=== PATIENT | male | born 1995 | race Caucasian/White ===

== ENCOUNTER 2016-09-20 18:07 | Emergency (ER) | payer OTHER ==
[2016-09-20 19:20] VITALS: BP 133/73
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
--- NOTE | 2016-09-20 20:29 | RAD ---
Indication: Left rib injury. 3 views of left ribs demonstrates no fracture. No other bone or joint abnormality is identified. No pneumothorax is noted. IMPRESSION: No fracture of the RIBS is identified.
[2016-09-20] MEDS ORDERED: HYDROcodone/ACETAMIN 5-325 MG* 1 TAB PO ONE (20:44)
--- NOTE | 2016-09-20 20:48 | RAD ---
Indication: Chest injury. 2 views of the sternum demonstrates no definite fracture. IMPRESSION: No definite fracture of the sternum is identified.
== END 2016-09-20 21:14 | disposition home or self-care (01) ==
LOC: UCEAST 18:07
DX: S16.1XXA Strain of muscle, fascia and tendon at neck level, initial encounter (principal); S20.212A Contusion of left front wall of thorax, initial encounter; V86.59XA Driver of other special all-terrain or other off-road motor vehicle injured in nontraffic accident, initial encounter; Y93.89 Activity, other specified; Y92.9 Unspecified place or not applicable; R50.9 Fever, unspecified; F12.90 Cannabis use, unspecified, uncomplicated; F17.210 Nicotine dependence, cigarettes, uncomplicated
CPT/HCPCS: 71120; 99212; G0463